=== PATIENT | female | born 1980 | race Caucasian/White ===

== ENCOUNTER 2024-03-29 16:51 | Emergency (ER) | payer OTHER, BC, SELFPAY ==
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
[2024-03-29 17:05] VITALS: BP 131/84; PULSE 90; RESP 16; TEMP 36.7; O2SAT 99
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
== END 2024-03-29 18:22 | disposition home or self-care (01) ==
PROVIDERS: Emergency Provider Nurse Practitioner Family; PCP Internal Medicine
DX: S29.012A Strain of muscle and tendon of back wall of thorax, initial encounter (principal); V49.40XA Driver injured in collision with unspecified motor vehicles in traffic accident, initial encounter
CPT/HCPCS: 71100; 99213; G0463